=== PATIENT | female | born 1980 | race Caucasian/White ===

== ENCOUNTER 2022-02-20 06:58 | Outpatient (CLI) | payer OTHER, SELFPAY ==
--- NOTE | 2022-02-20 07:13 | MM_ITS ---
WS: [id number] VIEWS: MLO and CC views both breasts. 3D digital tomosynthesis is also included in this exam. No prior studies. Findings: There was no sign of mass, architectural distortion or suspicious calcification in either breast. Sca ttered calcifications are noted in both breasts. Some of these appear to represent milk of calcium in microcysts.Heterogeneously dense. Six-month follow-up mammogram recommended for surveillance. MM/[place] [id number] Impression: BI-RADS: 2-Benign FOLLOW-UP: 6 Month Follow-up This mammogram was also analyzed by the Computer Aided Detection System R2 Imag e Melter Assistant.
== END 2022-02-20 06:59 | disposition home or self-care (01) ==
LOC: RAD 06:59
PROVIDERS: Family Provider Nurse Practitioner Family; Visit Provider Nurse Practitioner Family
DX: Z12.31 Encounter for screening mammogram for malignant neoplasm of breast (principal)
CPT/HCPCS: 77063; 77067

== ENCOUNTER → 2022-10-02 09:22 | Outpatient (BNVA) | payer SELFPAY | PROVIDERS: Family Provider Nurse Practitioner Family; PCP Family Medicine; Visit Provider Family Medicine | DX: Z51.81 Encounter for therapeutic drug level monitoring (principal); Z13.220 Encounter for screening for lipoid disorders; R73.09 Other abnormal glucose; E03.9 Hypothyroidism, unspecified; I10 Essential (primary) hypertension | CPT/HCPCS: 80053; 80061; 83036; 84443; 85025 ==

== ENCOUNTER → 2023-10-04 09:28 | Outpatient (BNVA) | payer SELFPAY | PROVIDERS: Family Provider Nurse Practitioner Family; PCP Family Medicine; Visit Provider Family Medicine | DX: Z51.81 Encounter for therapeutic drug level monitoring (principal); Z13.220 Encounter for screening for lipoid disorders; Z12.11 Encounter for screening for malignant neoplasm of colon | CPT/HCPCS: 80053; 80061; 85025 ==